=== PATIENT | female | born 1960 | race Caucasian/White ===

== ENCOUNTER 2016-12-10 21:46 | Inpatient (IN) | payer MEDICAID, OTHER ==
[~2016-12-10] VITALS: Ht 152.4 cm; Wt 76.0 kg
[2016-12-10 22:36] LABS: Basophils # (auto) 0.1 uL; Basophils % (auto) 0.7 % (0.0-2.0); CONDITION Y; Eosinophils # (auto) 0.3 uL; Eosinophils % (auto) 2.5 % (0.0-7.0); Hematocrit 43.7 % (36.0-46.0); Hemoglobin 14.7 g/dL (12.2-16.2); Lymphocytes # (auto) 3.5 uL; Mean Corpuscular Hemoglobin 27.6 pg (28.0-32.0); Mean Corpuscular Hgb Conc. 33.5 g/dL (32.0-36.0); Mean Corpuscular Volume 82.3 fL (80.0-100.0); Mean Platelet Volume 8.1 fL (6.9-10.8); Monocytes # (auto) 0.4 uL; Neutrophils # (auto) 5.8 uL; Neutrophils % (auto) 57.8 % (37.0-80.0); Platelet Count (auto) 378 10^3/uL (140-450); Red Cell Distribution Width 14.2 % (11.8-14.3)
[2016-12-10 22:57] LABS: Urine Bilirubin Negative (Negative); Urine Blood Negative /uL (Negative); Urine Ca Oxalate Crystal MANY (None Seen); Urine Color Yellow (Yellow); Urine Glucose Normal (Normal); Urine Hyaline Cast FEW /lpf (0 - 2); Urine Ketone TRACE (Negative); Urine Mucus FEW (None Seen); Urine Nitrite Negative (Negative); Urine RBC 6 /hpf (0 - 4); Urine Squamous Epithelial Cell FEW /hpf (<5); Urine pH 5.5 (5.0-8.0)
[2016-12-10 23:01] LABS: B-Type Natriuretic Peptide 136.13 pg/mL (0-100)
[2016-12-10 23:03] LABS: Temperature: 21.9 C (20.0-25.0)
[2016-12-10 23:07] LABS: Albumin 3.9 g/dL (3.4-5.0); BUN/Creatinine Ratio 14.3; Bilirubin, Total 0.2 mg/dL (0.2-1.0); Calcium 9.9 mg/dL (8.5-10.1); Potassium 4.2 mmol/L (3.5-5.1); Total Protein 8.1 g/dL (6.4-8.2)
[2016-12-11] VITALS (18 sets, daily range): BP systolic 92–120; BP diastolic 63–76
[2016-12-11] MEDS ORDERED: MORPHINE SULF INJ 2 MG/ML SYRINGE 1ML IV ONE (00:15)
[2016-12-11] MEDS ORDERED: NITROGLYCERIN 2% OINT 1GM PKG TD ONE (00:15)
[2016-12-11] MEDS ORDERED: ASPirin 81 mg TAB PO ONE (00:15)
[2016-12-11] MEDS ORDERED: ONDANSETRON HCL 4 MG/2 ML VIAL IV ONE (00:15)
[2016-12-11] MEDS ORDERED: cefTRIAXone 1GM/50ML D5W 50 ML IV ONE (02:45)
[2016-12-11] MEDS ORDERED: NITROGLYCERIN 0.4 MG SL TAB SL PRN (02:45)
[2016-12-11] MEDS ORDERED: ENOXAPARIN SOD 100 MG/1 ML SYRINGE SC SCH (02:45)
[2016-12-11] MEDS ORDERED: ONDANSETRON HCL 4 MG/2 ML VIAL IV PRN (02:45)
[2016-12-11] MEDS ORDERED: CLOPIDOGREL BISULFATE 75 MG TAB PO ONE (02:45)
[2016-12-11] MEDS ORDERED: DEXTROSE (50%) 50ML SYRG IV PRN (02:45)
[2016-12-11] MEDS ORDERED: CARVEDILOL 3.125 MG TAB PO ONE (02:45)
[2016-12-11] MEDS ORDERED: MORPHINE SULF INJ 2 MG/ML SYRINGE 1ML IV PRN ×2 (02:45)
[2016-12-11] MEDS ORDERED: cloNIDine HCL 0.1 MG TAB PO PRN (02:45)
[2016-12-11] MEDS ORDERED: HYDROcodone-ACET 5/325MG TAB PO PRN (02:45)
[2016-12-11] MEDS ORDERED: IOHEXOL 350 MG/ML 100ML IJ ONE (03:07)
[2016-12-11] MEDS: SODIUM CHLORIDE 0.9% 1,000 ML IV SCH ×2 (03:07→03:45)
[2016-12-11] MEDS: InsuLIN REG 1unit/0.01ml Soln (100units/ml) SC SCH ×4 (06:00→23:41)
[2016-12-11] MEDS ORDERED: cloNIDine HCL 0.1 MG TAB PO ONE (06:00)
[2016-12-11] MEDS: ACCU-CHEK COMFORT CURVE STRIP VI SCH ×4 (06:00→23:41)
[2016-12-11] MEDS ORDERED: CLOPIDOGREL BISULFATE 75 MG TAB PO SCH (10:00)
[2016-12-11] MEDS: ASPirin 81 mg TAB PO SCH (10:00)
[2016-12-11] MEDS: CARVEDILOL 3.125 MG TAB PO SCH ×2 (10:00→22:07)
[2016-12-11] MEDS: FAMOTIDINE 20 MG TAB PO SCH ×2 (10:00→22:08)
[2016-12-11] MEDS: amLODIPine BESYLATE 5 MG TAB PO SCH (10:00)
[2016-12-11] MEDS: ENOXAPARIN SOD 80 MG/0.8ML SYRINGE SC SCH ×2 (10:00→22:08)
[2016-12-11] MEDS: cefTRIAXone 1GM/50ML D5W 50 ML IV SCH (10:49)
[2016-12-11] MEDS ORDERED: LIDOCAINE 2%HCL (LOCAL ANESTH.) INJ 20ML MDV ONE (11:19)
[2016-12-11] MEDS ORDERED: IODIXANOL 320MG/ML 100ML BTL IV ONE (11:19)
[2016-12-11] MEDS ORDERED: ANGIOMAX 250 MG VIAL IV ONE (11:52)
[2016-12-11] MEDS ORDERED: fentaNYL CITRATE 100 MCG/2 ML VL ONE (11:53)
[2016-12-11] MEDS ORDERED: SODIUM CHL 0.9% 0 ML ONE (11:53)
[2016-12-11] MEDS ORDERED: MIDAZOLAM HCL 1MG/1ML-2 ML VIAL ONE (11:53)
[2016-12-11 11:55] LABS: INR 0.95 (0.9-1.15); Prothrombin Time 10.3 sec (9.37-12.3)
[2016-12-11] MEDS ORDERED: ceFAZolin 1GM 2 GM in D5W 5% 50 ML IV ONE (17:00)
[2016-12-11] MEDS ORDERED: VANCOMYCIN 1GM/250ML D5W 250 ML IV ONE (17:00)
[2016-12-11 17:59] LABS: Basophils # (auto) 0 uL; Basophils % (auto) 0.6 % (0.0-2.0); CONDITION Y; Eosinophils # (auto) 0.1 uL; Eosinophils % (auto) 1.8 % (0.0-7.0); Hematocrit 37.9 % (36.0-46.0); Hemoglobin 12.9 g/dL (12.2-16.2); Lymphocytes # (auto) 1.8 uL; Lymphocytes % (auto) 26.9 % (10.0-50.0); Mean Corpuscular Hemoglobin 28.2 pg (28.0-32.0); Mean Corpuscular Hgb Conc. 34.1 g/dL (32.0-36.0); Mean Corpuscular Volume 82.6 fL (80.0-100.0); Mean Platelet Volume 8.1 fL (6.9-10.8); Monocytes # (auto) 0.4 uL; Neutrophils # (auto) 4.4 uL; Neutrophils % (auto) 64.7 % (37.0-80.0); Platelet Count (auto) 292 10^3/uL (140-450); Red Cell Distribution Width 14.3 % (11.8-14.3); White Blood Cell 6.8 10^3/uL (4.4-10.8)
[2016-12-11] MEDS ORDERED: NITROGLYCERIN 50MG/250ML 250 ML IV ONE (18:02)
[2016-12-11 18:22] LABS: Albumin 3.4 g/dL (3.4-5.0); BUN/Creatinine Ratio 16.1; Bilirubin, Total 0.5 mg/dL (0.2-1.0); Calcium 8.9 mg/dL (8.5-10.1); Potassium 3.9 mmol/L (3.5-5.1); Total Protein 7.2 g/dL (6.4-8.2)
[2016-12-11] MEDS: NITROGLYCERIN 50MG/250ML 250 ML IV SCH (18:30)
[2016-12-11 19:05] LABS: Urine Bilirubin Negative (Negative); Urine Blood TRACE /uL (Negative); Urine Color Yellow (Yellow); Urine Glucose Normal (Normal); Urine Ketone Negative (Negative); Urine Mucus FEW (None Seen); Urine Nitrite Negative (Negative); Urine RBC 10 /hpf (0 - 4); Urine Squamous Epithelial Cell FEW /hpf (<5); Urine Urobilinogen Normal (Negative)
[2016-12-11 20:55] LABS: Allen Test Yes; Base Excess 0.3 mmol/L (-2.0-2.0); Blood 02Sat 92.6 % (96-100); Blood COHb 0.7 % (0.5-1.5); Blood MetHb 0.3 % (0.0-1.5); HCO3 25.3 mmol/L (22-26.0); HHb 7.3 % (0.0-5.0); MODE NASAL CANNULA; O2Hb 91.7 % (94.0-97.0); PCO2 42.4 mmHg (35.0-45.0); PCO2(T) 42.4 mmHg (35.0-45.0); PO2 68.1 mmHg (80.0-100.0); PO2(T) 68.1 mmHg (80.0-100.0); Sample Type Arterial; pH 7.394 (7.350-7.450)
[2016-12-11] MEDS: MUPIROCIN 2% OINT 22GM TOP SCH (21:00)
[2016-12-11] MEDS ORDERED: ASCORBIC ACID 500 MG TAB PO ONE (22:00)
[2016-12-11] MEDS: ACETAMINOPHEN 325 MG TAB PO PRN (22:25)
[2016-12-12] VITALS (51 sets, daily range): BP systolic 96–165; BP diastolic 56–94
[2016-12-12] MEDS ORDERED: CHLORHEXIDINE 4% TOPICAL soln 118ML TOP ONE (02:00)
[2016-12-12 04:21] LABS: Basophils # (auto) 0 uL; Basophils % (auto) 0.5 % (0.0-2.0); CONDITION Y; Eosinophils # (auto) 0.1 uL; Eosinophils % (auto) 1.8 % (0.0-7.0); Hematocrit 37.6 % (36.0-46.0); Hemoglobin 12.6 g/dL (12.2-16.2); Lymphocytes # (auto) 2.7 uL; Lymphocytes % (auto) 39.3 % (10.0-50.0); Mean Corpuscular Hemoglobin 27.8 pg (28.0-32.0); Mean Corpuscular Hgb Conc. 33.4 g/dL (32.0-36.0); Mean Corpuscular Volume 83.3 fL (80.0-100.0); Mean Platelet Volume 8.3 fL (6.9-10.8); Monocytes # (auto) 0.4 uL; Neutrophils # (auto) 3.6 uL; Neutrophils % (auto) 52.4 % (37.0-80.0); Platelet Count (auto) 250 10^3/uL (140-450); Red Cell Distribution Width 14.1 % (11.8-14.3); White Blood Cell 6.8 10^3/uL (4.4-10.8)
[2016-12-12 05:07] LABS: Albumin 3.2 g/dL (3.4-5.0); BUN/Creatinine Ratio 14.5; Bilirubin, Total 0.4 mg/dL (0.2-1.0); Calcium 8.7 mg/dL (8.5-10.1); Potassium 3.7 mmol/L (3.5-5.1); Total Protein 7.1 g/dL (6.4-8.2)
[2016-12-12] MEDS: InsuLIN REG 1unit/0.01ml Soln (100units/ml) SC SCH ×4 (06:47→23:44)
[2016-12-12] MEDS: ACCU-CHEK COMFORT CURVE STRIP VI SCH ×4 (06:47→23:44)
[2016-12-12] MEDS: MUPIROCIN 2% OINT 22GM TOP SCH ×3 (07:00→21:11)
[2016-12-12] MEDS ORDERED: ACCU-CHEK COMFORT CURVE STRIP VI ONE (08:00)
[2016-12-12] MEDS ORDERED: VANCOMYCIN 1GM/250ML D5W 250 ML IV ONE (08:00)
[2016-12-12] MEDS ORDERED: ceFAZolin 1GM/50ML D5W 50 ML IV ONE (08:00)
[2016-12-12] MEDS: cefTRIAXone 1GM/50ML D5W 50 ML IV SCH (08:54)
[2016-12-12] MEDS: SODIUM CHLORIDE 0.9% 1,000 ML IV SCH ×2 (08:56→21:35)
[2016-12-12] MEDS: ENOXAPARIN SOD 80 MG/0.8ML SYRINGE SC SCH (09:52)
[2016-12-12] MEDS: amLODIPine BESYLATE 5 MG TAB PO SCH (09:52)
[2016-12-12] MEDS: FAMOTIDINE 20 MG TAB PO SCH ×2 (09:53→21:43)
[2016-12-12] MEDS: CARVEDILOL 3.125 MG TAB PO SCH ×2 (09:53→21:43)
[2016-12-12] MEDS: ASPirin 81 mg TAB PO SCH (09:54)
[2016-12-12 11:43] LABS: Allen Test Yes; Base Excess -2.1 mmol/L (-2.0-2.0); Blood 02Sat 91.8 % (96-100); Blood COHb 0.9 % (0.5-1.5); Blood MetHb 0.2 % (0.0-1.5); HCO3 21.8 mmol/L (22-26.0); HHb 8.1 % (0.0-5.0); MODE ROOM AIR; O2Hb 90.8 % (94.0-97.0); PCO2 34.7 mmHg (35.0-45.0); PCO2(T) 34.7 mmHg (35.0-45.0); PO2 64.4 mmHg (80.0-100.0); PO2(T) 64.4 mmHg (80.0-100.0); Sample Type Arterial; pH 7.416 (7.350-7.450)
[2016-12-12] MEDS: IPRATROPIUM BROM 0.5 MG/2.5ML INH SOL NEB SCH ×3 (13:16→19:22)
[2016-12-12] MEDS ORDERED: CHLORHEXIDINE 0.12% ORAL rinse 473ML MT ONE (17:00)
[2016-12-12] MEDS: NITROGLYCERIN 50MG/250ML 250 ML IV SCH (17:05)
[2016-12-12] MEDS ORDERED: METOPROLOL TARTRATE 1MG/1ML-5ML VIAL IV ONE ×2 (18:07→18:15)
[2016-12-12] MEDS ORDERED: METOPROLOL TARTRATE 1MG/1ML-5ML VIAL IV PRN (18:15)
[2016-12-12] MEDS ORDERED: NITROGLYCERIN 50MG/250ML 250 ML IV SCH (19:00)
[2016-12-12] MEDS ORDERED: HEPARIN SODIUM (PORCINE) 5000 UNITS/ML 1ML VIAL IV ONE (19:00)
[2016-12-12] MEDS ORDERED: HEPARIN DRIP/D5W 100UNITS/ML 250 ML IV SCH (19:00)
[2016-12-12] MEDS: ACETAMINOPHEN 325 MG TAB PO PRN (21:50)
[2016-12-12] MEDS ORDERED: ASCORBIC ACID 500 MG TAB PO ONE (22:00)
[2016-12-12] MEDS ORDERED: ATORVASTATIN 20 MG TAB PO SCH (22:00)
[2016-12-13] VITALS (68 sets, daily range): BP systolic 25–148; BP diastolic 11–91
[2016-12-13] MEDS: IPRATROPIUM BROM 0.5 MG/2.5ML INH SOL NEB SCH ×3 (00:57→12:59)
[2016-12-13] MEDS ORDERED: CHLORHEXIDINE 4% TOPICAL soln 118ML TOP ONE (02:00)
[2016-12-13 03:45] LABS: Basophils # (auto) 0 uL; Basophils % (auto) 0.6 % (0.0-2.0); CONDITION Y; Eosinophils # (auto) 0.2 uL; Eosinophils % (auto) 2.9 % (0.0-7.0); Hematocrit 33.7 % (36.0-46.0); Hemoglobin 11.3 g/dL (12.2-16.2); Lymphocytes # (auto) 2.7 uL; Lymphocytes % (auto) 44.7 % (10.0-50.0); Mean Corpuscular Hemoglobin 27.9 pg (28.0-32.0); Mean Corpuscular Hgb Conc. 33.5 g/dL (32.0-36.0); Mean Corpuscular Volume 83.2 fL (80.0-100.0); Mean Platelet Volume 8.1 fL (6.9-10.8); Monocytes # (auto) 0.3 uL; Monocytes % (auto) 5.7 % (0.0-12.0); Neutrophils # (auto) 2.8 uL; Neutrophils % (auto) 46.1 % (37.0-80.0); Platelet Count (auto) 229 10^3/uL (140-450); Red Cell Distribution Width 14.1 % (11.8-14.3); White Blood Cell 6.1 10^3/uL (4.4-10.8)
[2016-12-13 03:50] LABS: INR 0.94 (0.9-1.15); Partial Thromboplastin Time 31.3 sec (22.64-33.71); Prothrombin Time 10.2 sec (9.37-12.3)
[2016-12-13 04:15] LABS: BUN/Creatinine Ratio 14.8; Calcium 8.5 mg/dL (8.5-10.1); Magnesium 1.7 mg/dL (1.6-2.6); Potassium 3.8 mmol/L (3.5-5.1)
[2016-12-13] MEDS: MUPIROCIN 2% OINT 22GM TOP SCH ×3 (04:31→10:45)
[2016-12-13] MEDS: InsuLIN REG 1unit/0.01ml Soln (100units/ml) SC SCH ×2 (06:01→11:06)
[2016-12-13] MEDS: ACCU-CHEK COMFORT CURVE STRIP VI SCH ×7 (06:01→22:52)
[2016-12-13] MEDS ORDERED: CHLORHEXIDINE 0.12% ORAL rinse 473ML MT ONE ×2 (08:00→09:39)
[2016-12-13] MEDS ORDERED: VANCOMYCIN 1GM/250ML D5W 250 ML IV ONE (08:00)
[2016-12-13] MEDS ORDERED: ceFAZolin 1GM/50ML D5W 50 ML IV ONE (08:00)
[2016-12-13] MEDS ORDERED: AMINOCAPROIC ACID 10 GM in SODIUM CHL 0.9% 100 ML IV ONE (09:00)
[2016-12-13] MEDS ORDERED: EPINEPHrine HCL 4 MG in D5W 5% 250 ML IV ONE (09:00)
[2016-12-13] MEDS ORDERED: PHENYLEPHRINE INJ 20 MG in SODIUM CHL 0.9% 250 ML IV ONE (09:00)
[2016-12-13] MEDS ORDERED: HEPARIN 30000 UNITS in SODIUM CHLORIDE 0.9% 1000 ML IV ONE (09:00)
[2016-12-13] MEDS ORDERED: InsuLIN R (HUMAN) 100 UNITS in SODIUM CHL 0.9% 99 ML IV ONE (09:00)
[2016-12-13] MEDS ORDERED: VASOPRESSIN 50 UNITS in SODIUM CHL 0.9% 247.5 ML IV ONE (09:00)
[2016-12-13] MEDS ORDERED: AMINOCAPROIC ACID 5 GM in SODIUM CHL 0.9% 250 ML IV ONE (09:00)
[2016-12-13] MEDS ORDERED: METF-372 PO (09:36)
[2016-12-13] MEDS ORDERED: SITA100T7 PO (09:36)
[2016-12-13] MEDS ORDERED: AML5T PO (09:36)
[2016-12-13] MEDS: FAMOTIDINE 20 MG TAB PO SCH (09:36)
[2016-12-13] MEDS ORDERED: CAR3125T PO (09:36)
[2016-12-13] MEDS: CARVEDILOL 3.125 MG TAB PO SCH (09:37)
[2016-12-13] MEDS: cefTRIAXone 1GM/50ML D5W 50 ML IV SCH (09:45)
[2016-12-13] MEDS ORDERED: CARV6.2551 PO (09:51)
[2016-12-13] MEDS ORDERED: ASPI-231 PO (09:56)
[2016-12-13] MEDS ORDERED: ASPirin 81 mg TAB PO SCH (10:00)
[2016-12-13] MEDS ORDERED: ARIP2TAB PO (10:09)
[2016-12-13] MEDS ORDERED: GABA-497 PO (10:14)
[2016-12-13] MEDS ORDERED: OMEP20CA74 PO (10:14)
[2016-12-13] MEDS ORDERED: FERR325T PO (10:14)
[2016-12-13] MEDS ORDERED: BUPR75TA9 PO (10:14)
[2016-12-13] MEDS ORDERED: GLIP-115 PO (10:14)
[2016-12-13] MEDS ORDERED: ALBUMIN 25% 400 ML IV ONE (10:43)
[2016-12-13] MEDS ORDERED: HEPARIN 1,000 UNITS/ml 1ML VIAL ONE (11:16)
[2016-12-13] MEDS ORDERED: PAPAVERINE HCL 60 MG/2 ML 2ML VIAL ONE (11:16)
[2016-12-13] MEDS ORDERED: NEOMYCIN-BACITRACIN-POLYM 15GM TOP OINT TOP ONE (11:16)
[2016-12-13] MEDS ORDERED: ceFAZolin 1GM VL ONE (11:16)
[2016-12-13] MEDS ORDERED: AMINOCAPROIC ACID 5 GM/20 ML VL IV ONE (11:25)
[2016-12-13] MEDS ORDERED: FUROSEMIDE 20 MG/2 ML VIAL IV ONE (11:25)
[2016-12-13] MEDS ORDERED: LIDOCAINE HCL 100 MG/5ML (2%) SYRG INJ IV ONE (11:25)
[2016-12-13] MEDS ORDERED: POTASSIUM CHL 2MEQ/ML 20ML IV ONE (11:25)
[2016-12-13] MEDS ORDERED: CALCIUM CHLOR(10%) 100MG/ML 10ML SYRINGE IV ONE ×2 (11:25→12:28)
[2016-12-13] MEDS ORDERED: SODIUM BICARBONATE 8.4% INJ 50ML SYRINGE IV ONE (11:25)
[2016-12-13] MEDS ORDERED: MAGNESIUM SULF 50% 40 MEQ/10 ML VL IV ONE (11:25)
[2016-12-13] MEDS ORDERED: MANNITOL 20% SOLN 100 gm/500ml BAG IV ONE (11:25)
[2016-12-13] MEDS ORDERED: PHENYLEPHRINE HCL 10 MG/ML VL IV ONE (11:25)
[2016-12-13] MEDS ORDERED: ADENOSINE 6 MG/2 ML INJ IV ONE (11:25)
[2016-12-13] MEDS ORDERED: LIDOCAINE 2%HCL (LOCAL ANESTH.) INJ 20ML MDV ONE (12:14)
[2016-12-13] MEDS ORDERED: MIDAZOLAM HCL 1MG/1ML-2 ML VIAL ONE ×3 (12:24→12:39)
[2016-12-13] MEDS ORDERED: PROPOFOL 100 ML IV ONE (12:29)
[2016-12-13] MEDS ORDERED: ROCURONIUM 10MG/ML 10ML VIAL IV ONE (12:29)
[2016-12-13] MEDS ORDERED: fentaNYL CITRATE 100 MCG/2 ML VL ONE (12:39)
[2016-12-13] MEDS ORDERED: fentaNYL CITRATE 10 ML ONE (13:24)
[2016-12-13] MEDS ORDERED: INSULIN DRIP 100 UNIT/100ML 100 ML IV SCH (18:41)
[2016-12-13 18:43] LABS: Base Excess -1.3 mmol/L (-2.0-2.0); Blood 02Sat 98.5 % (96-100); Blood COHb 0.3 % (0.5-1.5); Blood MetHb 0.7 % (0.0-1.5); HCO3 23.8 mmol/L (22-26.0); HHb 1.5 % (0.0-5.0); MODE VENT - A/C; O2Hb 97.5 % (94.0-97.0); PCO2 41.5 mmHg (35.0-45.0); PO2 158.3 mmHg (80.0-100.0); PO2(T) 147.1 mmHg (80.0-100.0); Sample Type Arterial; pH 7.377 (7.350-7.450)
[2016-12-13 18:45] LABS: Base Excess -1.5 mmol/L (-2.0-2.0); Blood 02Sat 99.2 % (96-100); Blood COHb 0.3 % (0.5-1.5); Blood MetHb 0.6 % (0.0-1.5); HHb 0.8 % (0.0-5.0); MODE VENT - A/C; O2Hb 98.3 % (94.0-97.0); PCO2(T) 45.8 mmHg (35.0-45.0); PO2 463.6 mmHg (80.0-100.0); PO2(T) 451.1 mmHg (80.0-100.0); Sample Type Arterial; pH 7.317 (7.350-7.450)
[2016-12-13] MEDS ORDERED: SODIUM BICARBONATE 8.4% INJ 50ML SYRINGE IV PRN (18:45)
[2016-12-13] MEDS ORDERED: AMIODARONE HCL 150 MG in D5W 5% 100 ML IV ONE (18:45)
[2016-12-13] MEDS ORDERED: DEXTROSE (50%) 50ML SYRG IV PRN (18:45)
[2016-12-13 18:46] LABS: Base Excess 0.5 mmol/L (-2.0-2.0); Blood 02Sat 97.9 % (96-100); Blood COHb 0.2 % (0.5-1.5); Blood MetHb 0.9 % (0.0-1.5); HCO3 26.3 mmol/L (22-26.0); HHb 2.1 % (0.0-5.0); MODE OXYGENATOR/CPB; O2Hb 96.8 % (94.0-97.0); PCO2 48.7 mmHg (35.0-45.0); PCO2(T) 48.7 mmHg (35.0-45.0); PO2 155.1 mmHg (80.0-100.0); PO2(T) 155.1 mmHg (80.0-100.0); Sample Type Arterial; pH 7.351 (7.350-7.450)
[2016-12-13 18:47] LABS: Base Excess -2.1 mmol/L (-2.0-2.0); Blood 02Sat 98.7 % (96-100); Blood COHb 0.3 % (0.5-1.5); Blood MetHb 0.9 % (0.0-1.5); HCO3 23.3 mmol/L (22-26.0); HHb 1.3 % (0.0-5.0); MODE OXYGENATOR/CPB; O2Hb 97.5 % (94.0-97.0); PCO2 42.6 mmHg (35.0-45.0); PCO2(T) 37.4 mmHg (35.0-45.0); PO2 361.5 mmHg (80.0-100.0); Sample Type Arterial; pH 7.356 (7.350-7.450)
[2016-12-13 18:47] LABS: Base Excess 0.1 mmol/L (-2.0-2.0); Blood 02Sat 98.3 % (96-100); Blood COHb 0.3 % (0.5-1.5); HCO3 25.4 mmol/L (22-26.0); HHb 1.7 % (0.0-5.0); MODE OXYGENATOR/CPB; PCO2 44.5 mmHg (35.0-45.0); PO2 208.1 mmHg (80.0-100.0); PO2(T) 193.5 mmHg (80.0-100.0); Sample Type Arterial; pH 7.375 (7.350-7.450)
[2016-12-13 18:48] LABS: Base Excess -1.5 mmol/L (-2.0-2.0); Blood 02Sat 98.5 % (96-100); Blood COHb 0.3 % (0.5-1.5); Blood MetHb 1.3 % (0.0-1.5); HCO3 23.4 mmol/L (22-26.0); HHb 1.5 % (0.0-5.0); MODE OXYGENATOR/CPB; O2Hb 96.9 % (94.0-97.0); PCO2 39.7 mmHg (35.0-45.0); PCO2(T) 36.4 mmHg (35.0-45.0); PO2 305.4 mmHg (80.0-100.0); PO2(T) 295.8 mmHg (80.0-100.0); Sample Type Arterial; pH 7.388 (7.350-7.450)
[2016-12-13 18:49] LABS: Base Excess -0.6 mmol/L (-2.0-2.0); Blood 02Sat 97.1 % (96-100); Blood COHb 0.3 % (0.5-1.5); Blood MetHb 1.1 % (0.0-1.5); HCO3 23.6 mmol/L (22-26.0); HHb 2.9 % (0.0-5.0); MODE VENT - A/C; O2Hb 95.7 % (94.0-97.0); PCO2 36.7 mmHg (35.0-45.0); PCO2(T) 36.7 mmHg (35.0-45.0); PO2 113.6 mmHg (80.0-100.0); PO2(T) 113.6 mmHg (80.0-100.0); Sample Type Arterial; pH 7.426 (7.350-7.450)
[2016-12-13] MEDS ORDERED: AMIODARONE HCL 900 MG in DEXTROSE 500 ML IV SCH (19:00)
[2016-12-13 19:28] LABS: Base Excess -2.7 mmol/L (-2.0-2.0); Blood 02Sat 89.6 % (96-100); Blood COHb 0.1 % (0.5-1.5); Blood MetHb 0.2 % (0.0-1.5); HHb 10.4 % (0.0-5.0); MODE VENT - A/C; O2Hb 89.3 % (94.0-97.0); PCO2 37.6 mmHg (35.0-45.0); PCO2(T) 37.6 mmHg (35.0-45.0); PO2 59.5 mmHg (80.0-100.0); PO2(T) 59.5 mmHg (80.0-100.0); Sample Type Arterial; pH 7.385 (7.350-7.450)
[2016-12-13 19:46] LABS: Basophils # (auto) 0 uL; Basophils % (auto) 0.5 % (0.0-2.0); Eosinophils # (auto) 0.1 uL; Eosinophils % (auto) 1.1 % (0.0-7.0); Hemoglobin 9.7 g/dL (12.2-16.2); Lymphocytes # (auto) 1.8 uL; Lymphocytes % (auto) 23.6 % (10.0-50.0); Mean Corpuscular Hemoglobin 28.9 pg (28.0-32.0); Mean Corpuscular Hgb Conc. 34.7 g/dL (32.0-36.0); Mean Corpuscular Volume 83.2 fL (80.0-100.0); Mean Platelet Volume 7.8 fL (6.9-10.8); Monocytes # (auto) 0.5 uL; Monocytes % (auto) 6.5 % (0.0-12.0); Neutrophils # (auto) 5.2 uL; Neutrophils % (auto) 68.3 % (37.0-80.0); Platelet Count (auto) 118 10^3/uL (140-450); Red Cell Distribution Width 14.2 % (11.8-14.3); White Blood Cell 7.6 10^3/uL (4.4-10.8)
[2016-12-13 19:52] LABS: Blood 02Sat 63.7 % (96-100); MODE VENT - A/C; Sample Type Venous; Venous Blood COHb 0.9 % (0.5-1.5); Venous Blood MetHb 0.3 % (0.0-1.5); Venous Blood O2Hb 62.9 % (94.0-97.0); Venous Blood PO2 < 35.0 mmHg (38.0-42.0); Venous Deoxyhemoglobin 35.9 % (0.0-5.0)
[2016-12-13] MEDS: PROPOFOL 100 ML IV SCH (20:00)
[2016-12-13 20:05] LABS: INR 0.97 (0.9-1.15); Partial Thromboplastin Time 23.4 sec (22.64-33.71); Prothrombin Time 10.6 sec (9.37-12.3)
[2016-12-13 20:10] LABS: Albumin 3.4 g/dL (3.4-5.0); BUN/Creatinine Ratio 10.9; Calcium 8.5 mg/dL (8.5-10.1); Magnesium 3.5 mg/dL (1.6-2.6); Potassium 4.1 mmol/L (3.5-5.1)
[2016-12-13 20:12] LABS: Bilirubin, Total 0.8 mg/dL (0.2-1.0); Phosphorus 2.4 mg/dL (2.5-4.90); Total Protein 5.7 g/dL (6.4-8.2)
[2016-12-13] MEDS ORDERED: VANCOMYCIN PER PHARMACY 0 MG IV STA (20:43)
[2016-12-13] MEDS ORDERED: MAGNESIUM SULFATE 1GM/100ML 100 ML IV PRN (20:45)
[2016-12-13] MEDS ORDERED: MORPHINE SULF INJ 2 MG/ML SYRINGE 1ML IV PRN ×2 (20:45→21:15)
[2016-12-13] MEDS ORDERED: CALCIUM GLUC 4.65meq/50ml D5AE 50 ML IV PRN (20:45)
[2016-12-13] MEDS ORDERED: MORPHINE SULFATE 4 MG/ML SYRG IV PRN (20:45)
[2016-12-13] MEDS: ceFAZolin 1GM/50ML D5W 50 ML IV SCH (21:42)
[2016-12-13] MEDS: CHLORHEXIDINE 0.12% ORAL rinse 473ML MT SCH (21:43)
[2016-12-13] MEDS: NOREPINEPHRINE BITARTRATE 250 ML IV SCH (21:43)
[2016-12-13] MEDS: SODIUM CHLORIDE 0.9% 500 ML IV SCH (21:43)
[2016-12-13] MEDS: NICARDIPINE 25MG/250ML BAG KIT 250 ML IV SCH ×2 (21:44→23:41)
[2016-12-13] MEDS: MILRINONE 20MG/100ML 100 ML IV SCH (21:46)
[2016-12-13] MEDS: SODIUM CHLORIDE 0.9% 1,000 ML IV SCH (21:47)
[2016-12-13] MEDS ORDERED: fentaNYL Drip 2500mCg/250mlNS 250 ML IV ONE (22:05)
[2016-12-13] MEDS: fentaNYL Drip 2500mCg/250mlNS 250 ML IV SCH (22:08)
[2016-12-13] MEDS: NITROGLYCERIN 50MG/250ML 250 ML IV SCH (22:13)
[2016-12-13] MEDS: PHENYLEPHRINE IV 250 ML IV SCH (22:14)
[2016-12-13] MEDS: ALBUMIN 5% 250 ML IV PRN (22:58)
[2016-12-14] VITALS (111 sets, daily range): BP systolic 24–203; BP diastolic 8–198
[2016-12-14] MEDS: VANCOMYCIN 1GM/250ML D5W 250 ML IV SCH ×2 (00:17→11:32)
[2016-12-14] MEDS: ACCU-CHEK COMFORT CURVE STRIP VI SCH ×18 (00:18→17:12)
[2016-12-14 00:31] LABS: BUN/Creatinine Ratio 12.5; Calcium 8.7 mg/dL (8.5-10.1); Magnesium 2.9 mg/dL (1.6-2.6); Phosphorus 2.4 mg/dL (2.5-4.90); Potassium 3.4 mmol/L (3.5-5.1)
[2016-12-14] MEDS: AMIODARONE HCL 900 MG in DEXTROSE 500 ML IV SCH (01:00)
[2016-12-14] MEDS: POTASSIUM CHL 20MEQ/100ML 100 ML IV PRN ×3 (01:30→03:16)
[2016-12-14] MEDS: PROPOFOL 100 ML IV SCH ×2 (02:00→07:17)
[2016-12-14] MEDS: NITROGLYCERIN 50MG/250ML 250 ML IV SCH (02:20)
[2016-12-14] MEDS: SODIUM CHLORIDE 0.9% 1,000 ML IV SCH ×3 (02:41→19:01)
[2016-12-14] MEDS ORDERED: IBUPROFEN 400 MG TAB PO PRN (02:45)
[2016-12-14] MEDS ORDERED: IBUPROFEN 800 MG TAB PO ONE (02:50)
[2016-12-14] MEDS: ALBUMIN 5% 250 ML IV PRN ×2 (04:06→08:08)
[2016-12-14 04:35] LABS: Base Excess -0.1 mmol/L (-2.0-2.0); Blood 02Sat 95.9 % (96-100); Blood COHb 0.6 % (0.5-1.5); Blood MetHb 0.3 % (0.0-1.5); HCO3 24.9 mmol/L (22-26.0); HHb 4.1 % (0.0-5.0); MODE VENT - A/C; PCO2 41.9 mmHg (35.0-45.0); PCO2(T) 43.8 mmHg (35.0-45.0); PO2 91.7 mmHg (80.0-100.0); PO2(T) 97.6 mmHg (80.0-100.0); Sample Type Arterial; pH 7.391 (7.350-7.450)
[2016-12-14] MEDS: NICARDIPINE 25MG/250ML BAG KIT 250 ML IV SCH ×4 (04:41→19:30)
[2016-12-14 04:42] LABS: Basophils # (auto) 0.1 uL; Basophils % (auto) 0.6 % (0.0-2.0); Eosinophils # (auto) 0 uL; Eosinophils % (auto) 0.2 % (0.0-7.0); Hematocrit 30.4 % (36.0-46.0); Hemoglobin 10.3 g/dL (12.2-16.2); Lymphocytes # (auto) 1.6 uL; Lymphocytes % (auto) 16.5 % (10.0-50.0); Mean Corpuscular Hemoglobin 28.3 pg (28.0-32.0); Mean Corpuscular Hgb Conc. 33.7 g/dL (32.0-36.0); Mean Platelet Volume 8.2 fL (6.9-10.8); Monocytes # (auto) 0.6 uL; Monocytes % (auto) 6.4 % (0.0-12.0); Neutrophils # (auto) 7.6 uL; Neutrophils % (auto) 76.3 % (37.0-80.0); Platelet Count (auto) 180 10^3/uL (140-450); Red Cell Distribution Width 14.5 % (11.8-14.3); White Blood Cell 9.9 10^3/uL (4.4-10.8)
[2016-12-14 05:03] LABS: BUN/Creatinine Ratio 10.8; Calcium 8.4 mg/dL (8.5-10.1); Magnesium 2.7 mg/dL (1.6-2.6); Phosphorus 3.3 mg/dL (2.5-4.90)
[2016-12-14 05:08] LABS: Potassium 5.6 mmol/L (3.5-5.1)
[2016-12-14] MEDS: ceFAZolin 1GM/50ML D5W 50 ML IV SCH ×3 (05:53→22:06)
[2016-12-14] MEDS: MILRINONE 20MG/100ML 100 ML IV SCH ×2 (06:00→16:20)
[2016-12-14] MEDS ORDERED: SODIUM CHLORIDE 0.9% 300 ML IV ONE (06:15)
[2016-12-14] MEDS: CHLORHEXIDINE 0.12% ORAL rinse 473ML MT SCH ×2 (10:00→22:06)
[2016-12-14] MEDS: PANTOPRAZOLE 40 MG/10 ML VIAL IV SCH (10:48)
[2016-12-14 13:22] LABS: Basophils # (auto) 0.1 uL; Basophils % (auto) 0.8 % (0.0-2.0); Eosinophils # (auto) 0.1 uL; Eosinophils % (auto) 1.4 % (0.0-7.0); Hematocrit 28.8 % (36.0-46.0); Hemoglobin 9.8 g/dL (12.2-16.2); Lymphocytes # (auto) 1.6 uL; Lymphocytes % (auto) 18.6 % (10.0-50.0); Mean Corpuscular Hemoglobin 28.4 pg (28.0-32.0); Mean Corpuscular Hgb Conc. 33.9 g/dL (32.0-36.0); Mean Corpuscular Volume 83.8 fL (80.0-100.0); Mean Platelet Volume 8.1 fL (6.9-10.8); Monocytes # (auto) 0.5 uL; Monocytes % (auto) 5.6 % (0.0-12.0); Neutrophils # (auto) 6.3 uL; Neutrophils % (auto) 73.6 % (37.0-80.0); Platelet Count (auto) 159 10^3/uL (140-450); Red Cell Distribution Width 14.6 % (11.8-14.3); White Blood Cell 8.6 10^3/uL (4.4-10.8)
[2016-12-14] MEDS: MORPHINE SULF INJ 2 MG/ML SYRINGE 1ML IV PRN ×2 (13:22→23:51)
[2016-12-14 13:38] LABS: BUN/Creatinine Ratio 14.5; Calcium 8.5 mg/dL (8.5-10.1); Magnesium 2.6 mg/dL (1.6-2.6); Phosphorus 3.4 mg/dL (2.5-4.90)
[2016-12-14 15:23] LABS: Blood 02Sat 89.3 % (96-100); Blood COHb 0.6 % (0.5-1.5); Blood MetHb 0.1 % (0.0-1.5); HCO3 18.6 mmol/L (22-26.0); HHb 10.6 % (0.0-5.0); MODE VENT - SIMV; O2Hb 88.7 % (94.0-97.0); PCO2 29.7 mmHg (35.0-45.0); PCO2(T) 29.7 mmHg (35.0-45.0); PO2 61.5 mmHg (80.0-100.0); PO2(T) 61.5 mmHg (80.0-100.0); Pressure Support 8; Sample Type Arterial; pH 7.414 (7.350-7.450)
[2016-12-14 16:11] LABS: Base Excess -2.8 mmol/L (-2.0-2.0); Blood 02Sat 91.1 % (96-100); Blood COHb 0.2 % (0.5-1.5); Blood MetHb 0.5 % (0.0-1.5); HHb 8.8 % (0.0-5.0); MODE VENT - CPAP; O2Hb 90.5 % (94.0-97.0); PCO2 28.4 mmHg (35.0-45.0); PCO2(T) 29.3 mmHg (35.0-45.0); PO2 61.9 mmHg (80.0-100.0); Pressure Support 10; Sample Type Arterial; pH 7.466 (7.350-7.450)
[2016-12-14] MEDS ORDERED: FUROSEMIDE 20 MG/2 ML VIAL ONE (16:56)
[2016-12-14] MEDS ORDERED: FUROSEMIDE 20 MG/2 ML VIAL IV ONE (17:02)
[2016-12-14 18:40] LABS: Base Excess -2.8 mmol/L (-2.0-2.0); Blood 02Sat 91.5 % (96-100); Blood COHb 0.5 % (0.5-1.5); Blood MetHb 0.1 % (0.0-1.5); HCO3 20.3 mmol/L (22-26.0); HHb 8.4 % (0.0-5.0); MODE MASK - BIPAP; PCO2 29.6 mmHg (35.0-45.0); PCO2(T) 31.6 mmHg (35.0-45.0); PIP 15; PO2 62.1 mmHg (80.0-100.0); PO2(T) 68.9 mmHg (80.0-100.0); Sample Type Arterial; Spont Vt 478; pH 7.454 (7.350-7.450)
[2016-12-14] MEDS: PHENYLEPHRINE IV 250 ML IV SCH (18:41)
[2016-12-14] MEDS: NOREPINEPHRINE BITARTRATE 250 ML IV SCH (18:41)
[2016-12-14] MEDS: SODIUM CHLORIDE 0.9% 500 ML IV SCH (19:01)
[2016-12-14] MEDS ORDERED: KETOROLAC TROMETH 30 MG/ML 1ML VIAL ONE (19:42)
[2016-12-14] MEDS: INSULIN DRIP 100 UNIT/100ML 100 ML IV SCH (20:00)
[2016-12-14] MEDS ORDERED: ACCU-CHEK COMFORT CURVE STRIP VI SCH (20:00)
[2016-12-14] MEDS ORDERED: KETOROLAC TROMETH 30 MG/ML 1ML VIAL IV ONE (20:30)
[2016-12-14] MEDS: fentaNYL Drip 2500mCg/250mlNS 250 ML IV SCH (22:08)
[2016-12-15] VITALS (86 sets, daily range): BP systolic -14–159; BP diastolic -15–118
[2016-12-15] MEDS: VANCOMYCIN 1GM/250ML D5W 250 ML IV SCH ×2 (00:08→13:00)
[2016-12-15 00:27] LABS: Potassium 3.9 mmol/L (3.5-5.1)
[2016-12-15] MEDS: NICARDIPINE 25MG/250ML BAG KIT 250 ML IV SCH ×5 (00:41→20:41)
[2016-12-15] MEDS: AMIODARONE HCL 900 MG in DEXTROSE 500 ML IV SCH (01:00)
[2016-12-15] MEDS: POTASSIUM CHL 20MEQ/100ML 100 ML IV PRN ×2 (01:18→04:23)
[2016-12-15] MEDS ORDERED: FUROSEMIDE 20 MG/2 ML VIAL IV ONE ×4 (02:15→20:15)
[2016-12-15] MEDS: KETOROLAC TROMETH 30 MG/ML 1ML VIAL IV PRN ×2 (02:31→17:45)
[2016-12-15] MEDS: SODIUM CHLORIDE 0.9% 1,000 ML IV SCH (02:41)
[2016-12-15 03:33] LABS: Basophils # (auto) 0 uL; Basophils % (auto) 0.6 % (0.0-2.0); Eosinophils # (auto) 0.2 uL; Eosinophils % (auto) 2.3 % (0.0-7.0); Hematocrit 27.9 % (36.0-46.0); Hemoglobin 9.4 g/dL (12.2-16.2); Lymphocytes # (auto) 1.5 uL; Lymphocytes % (auto) 21.2 % (10.0-50.0); Mean Corpuscular Hemoglobin 28.4 pg (28.0-32.0); Mean Corpuscular Hgb Conc. 33.7 g/dL (32.0-36.0); Mean Corpuscular Volume 84.4 fL (80.0-100.0); Mean Platelet Volume 8.2 fL (6.9-10.8); Monocytes # (auto) 0.6 uL; Monocytes % (auto) 8.6 % (0.0-12.0); Neutrophils # (auto) 4.7 uL; Neutrophils % (auto) 67.3 % (37.0-80.0); Nucleated Red Blood Cells % 0.1 %; Platelet Count (auto) 125 10^3/uL (140-450); Red Cell Distribution Width 15.2 % (11.8-14.3)
[2016-12-15 04:07] LABS: Albumin 3.4 g/dL (3.4-5.0); BUN/Creatinine Ratio 13.4; Bilirubin, Total 0.9 mg/dL (0.2-1.0); Potassium 3.8 mmol/L (3.5-5.1); Total Protein 6.1 g/dL (6.4-8.2)
[2016-12-15] MEDS: MILRINONE 20MG/100ML 100 ML IV SCH (04:38)
[2016-12-15] MEDS ORDERED: HYDROcodone-ACET 5/325MG TAB PO PRN ×2 (05:45→15:30)
[2016-12-15] MEDS: ceFAZolin 1GM/50ML D5W 50 ML IV SCH ×3 (06:00→14:32)
[2016-12-15] MEDS ORDERED: IPRATROPIUM BROM 0.5 MG/2.5ML INH SOL ONE (06:06)
[2016-12-15 06:09] LABS: Allen Test No; Base Excess -1.1 mmol/L (-2.0-2.0); Blood 02Sat 90.7 % (96-100); Blood MetHb 0.2 % (0.0-1.5); HHb 9.3 % (0.0-5.0); MODE MASK - BIPAP; O2Hb 90.5 % (94.0-97.0); PO2 60.5 mmHg (80.0-100.0); PO2(T) 60.5 mmHg (80.0-100.0); Sample Type Arterial; pH 7.468 (7.350-7.450)
[2016-12-15] MEDS: IPRATROPIUM BROM 0.5 MG/2.5ML INH SOL NEB SCH ×5 (06:20→23:00)
[2016-12-15] MEDS: MORPHINE SULF INJ 2 MG/ML SYRINGE 1ML IV PRN (06:40)
[2016-12-15] MEDS ORDERED: METOPROLOL TARTRATE 25 MG TAB PO SCH ×3 (10:00→22:00)
[2016-12-15] MEDS ORDERED: NTG 0.1MG/HR TOPICAL PATCH TD SCH (10:00)
[2016-12-15] MEDS ORDERED: METOPROLOL TARTRATE 25 MG TAB PO ONE ×2 (10:15→15:30)
[2016-12-15] MEDS ORDERED: ASPirin 81 mg TAB PO ONE (10:15)
[2016-12-15] MEDS ORDERED: ACETYLCYSTEINE 10 %(100MG/ML) SOL 4ML NEB ONE (10:15)
[2016-12-15] MEDS ORDERED: FERROUS SULFATE 325 MG TAB PO ONE (10:15)
[2016-12-15] MEDS: PANTOPRAZOLE 40 MG/10 ML VIAL IV SCH (10:44)
[2016-12-15] MEDS: CHLORHEXIDINE 0.12% ORAL rinse 473ML MT SCH ×2 (10:44→22:00)
[2016-12-15] MEDS: POTASSIUM CHL 20 Meq TABLET PO SCH ×2 (10:45→22:00)
[2016-12-15] MEDS ORDERED: NITROGLYCERIN 0.4MG/HR TOPICAL PATCH TD ONE (11:00)
[2016-12-15] MEDS: NITROGLYCERIN 0.4MG/HR TOPICAL PATCH TD SCH (11:36)
[2016-12-15] MEDS ORDERED: ALBUMIN 25% 50 ML IV ONE ×2 (13:43→13:45)
[2016-12-15] MEDS ORDERED: ACETYLCYSTEINE 10 %(100MG/ML) SOL 4ML NEB SCH (14:00)
[2016-12-15] MEDS: Boost Glucose Control 8 Ounces PO SCH ×2 (14:20→18:00)
[2016-12-15] MEDS ORDERED: MORPHINE SULF INJ 2 MG/ML SYRINGE 1ML IV PRN ×2 (15:15)
[2016-12-15] MEDS ORDERED: SENNA 8.6 MG TAB PO PRN (15:30)
[2016-12-15] MEDS ORDERED: glipiZIDE 5 MG TAB PO ONE (15:30)
[2016-12-15] MEDS ORDERED: ONDANSETRON HCL 4 MG/2 ML VIAL IV PRN (15:30)
[2016-12-15] MEDS ORDERED: ZOLPIDEM TARTRATE 5 MG TAB PO PRN (15:30)
[2016-12-15] MEDS ORDERED: DOCUSATE SOD 100 MG CAP PO ONE (15:30)
[2016-12-15] MEDS ORDERED: DEXTROSE (50%) 50ML SYRG IV PRN (15:30)
[2016-12-15] MEDS ORDERED: PANTOPRAZOLE 40 MG TAB PO ONE (15:30)
[2016-12-15] MEDS ORDERED: SODIUM CHLORIDE 0.9% 1,000 ML IV SCH (15:45)
[2016-12-15] MEDS ORDERED: FUROSEMIDE 20 MG/2 ML VIAL IV PRN (15:45)
[2016-12-15] MEDS ORDERED: PHENYLEPHRINE IV 250 ML IV ONE (16:24)
[2016-12-15] MEDS ORDERED: NITROGLYCERIN 50MG/250ML 250 ML IV ONE (16:24)
[2016-12-15] MEDS: ACCU-CHEK COMFORT CURVE STRIP VI SCH ×2 (17:34→20:30)
[2016-12-15] MEDS: FERROUS SULFATE 325 MG TAB PO SCH (17:34)
[2016-12-15] MEDS: FUROSEMIDE 20 MG TAB PO SCH (17:34)
[2016-12-15] MEDS ORDERED: INSULIN DRIP 100 UNIT/100ML 100 ML IV SCH (17:42)
[2016-12-15] MEDS: ACETYLCYSTEINE 10 %(100MG/ML) SOL 4ML NEB SCH ×2 (18:00→23:00)
[2016-12-15] MEDS: InsuLIN REG 1unit/0.01ml Soln (100units/ml) SC SCH ×2 (18:00→21:00)
[2016-12-15] MEDS: metFORMIN HYDROCHLORIDE 500 MG TAB PO SCH (18:00)
[2016-12-15] MEDS: PROPRANOLOL HCL 1 MG/ML VIAL IV PRN (18:25)
[2016-12-15] MEDS ORDERED: ACCU-CHEK COMFORT CURVE STRIP VI SCH (19:00)
[2016-12-15 19:02] LABS: Basophils # (auto) 0 uL; Basophils % (auto) 0.3 % (0.0-2.0); Eosinophils # (auto) 0.3 uL; Eosinophils % (auto) 4.3 % (0.0-7.0); Hematocrit 27.1 % (36.0-46.0); Hemoglobin 9.2 g/dL (12.2-16.2); Lymphocytes # (auto) 1.5 uL; Mean Corpuscular Hemoglobin 28.5 pg (28.0-32.0); Mean Corpuscular Hgb Conc. 33.8 g/dL (32.0-36.0); Mean Corpuscular Volume 84.2 fL (80.0-100.0); Mean Platelet Volume 7.8 fL (6.9-10.8); Monocytes # (auto) 0.6 uL; Monocytes % (auto) 7.8 % (0.0-12.0); Neutrophils # (auto) 5.2 uL; Neutrophils % (auto) 67.6 % (37.0-80.0); Nucleated Red Blood Cells % 0.1 %; Platelet Count (auto) 142 10^3/uL (140-450); Red Cell Distribution Width 15.2 % (11.8-14.3); White Blood Cell 7.7 10^3/uL (4.4-10.8)
[2016-12-15] MEDS ORDERED: hydrALAZINE HCL 20 MG/ML VL IV PRN (20:00)
[2016-12-15] MEDS ORDERED: ASPirin-EC 81 mg tab PO ONE (20:00)
[2016-12-15] MEDS: INSULIN DRIP 100 UNIT/100ML 100 ML IV SCH (20:00)
[2016-12-15] MEDS: DOCUSATE SOD 100 MG CAP PO SCH (22:00)
[2016-12-15] MEDS ORDERED: buPROPion HCL 75 MG TAB PO SCH (22:00)
[2016-12-15] MEDS: INSULIN DETEMIR(LEVEMIR) 1unit/0.01ml Soln (100units/ml) SC SCH (22:00)
[2016-12-15] MEDS: ASCORBIC ACID 500 MG TAB PO SCH (22:00)
[2016-12-15] MEDS: ATORVASTATIN 20 MG TAB PO SCH (22:00)
[2016-12-16] VITALS (49 sets, daily range): BP systolic 95–154; BP diastolic 22–84
[2016-12-16] MEDS: AMIODARONE HCL 900 MG in DEXTROSE 500 ML IV SCH (01:00)
[2016-12-16] MEDS ORDERED: KETOROLAC TROMETH 30 MG/ML 1ML VIAL IV ONE (01:45)
[2016-12-16] MEDS: IPRATROPIUM BROM 0.5 MG/2.5ML INH SOL NEB SCH ×6 (02:00→21:52)
[2016-12-16] MEDS: VANCOMYCIN 1GM/250ML D5W 250 ML IV SCH ×2 (02:25→12:20)
[2016-12-16] MEDS: ACCU-CHEK COMFORT CURVE STRIP VI SCH ×6 (03:19→20:00)
[2016-12-16] MEDS: InsuLIN REG 1unit/0.01ml Soln (100units/ml) SC SCH ×6 (03:19→20:00)
[2016-12-16 03:42] LABS: Basophils # (auto) 0 uL; Basophils % (auto) 0.5 % (0.0-2.0); Eosinophils # (auto) 0.3 uL; Eosinophils % (auto) 4.2 % (0.0-7.0); Hematocrit 31.6 % (36.0-46.0); Hemoglobin 10.5 g/dL (12.2-16.2); Lymphocytes # (auto) 1.5 uL; Mean Corpuscular Hemoglobin 28.3 pg (28.0-32.0); Mean Corpuscular Hgb Conc. 33.3 g/dL (32.0-36.0); Mean Platelet Volume 8.1 fL (6.9-10.8); Monocytes # (auto) 0.5 uL; Monocytes % (auto) 6.4 % (0.0-12.0); Neutrophils # (auto) 5.6 uL; Neutrophils % (auto) 69.9 % (37.0-80.0); Nucleated Red Blood Cells % 0.1 %; Platelet Count (auto) 141 10^3/uL (140-450)
[2016-12-16 04:05] LABS: Albumin 3.3 g/dL (3.4-5.0); BUN/Creatinine Ratio 16.4; Calcium 8.5 mg/dL (8.5-10.1); Magnesium 1.5 mg/dL (1.6-2.6); Potassium 3.8 mmol/L (3.5-5.1)
[2016-12-16 04:07] LABS: Total Protein 6.4 g/dL (6.4-8.2)
[2016-12-16] MEDS ORDERED: MAGNESIUM SULFATE 1GM/100ML 200 ML IV ONE (04:40)
[2016-12-16] MEDS ORDERED: POTASSIUM CHL 20MEQ/100ML 100 ML IV ONE (04:45)
[2016-12-16] MEDS ORDERED: CALCIUM GLUC 4.65meq/50ml D5AE 50 ML IV ONE (04:45)
[2016-12-16] MEDS: MAGNESIUM SULFATE 1GM/100ML 100 ML IV SCH ×2 (04:58→05:42)
[2016-12-16] MEDS: FUROSEMIDE 20 MG TAB PO SCH ×2 (06:00→19:25)
[2016-12-16] MEDS: NICARDIPINE 25MG/250ML BAG KIT 250 ML IV SCH ×2 (06:41→08:22)
[2016-12-16] MEDS: PROPRANOLOL HCL 1 MG/ML VIAL IV PRN (08:00)
[2016-12-16] MEDS: FERROUS SULFATE 325 MG TAB PO SCH ×2 (08:17→19:25)
[2016-12-16] MEDS: Boost Glucose Control 8 Ounces PO SCH ×3 (08:17→19:25)
[2016-12-16] MEDS: glipiZIDE 5 MG TAB PO SCH (08:19)
[2016-12-16] MEDS: metFORMIN HYDROCHLORIDE 500 MG TAB PO SCH ×2 (08:20→19:25)
[2016-12-16] MEDS: cefTRIAXone 1GM/50ML D5W 50 ML IV SCH (09:15)
[2016-12-16] MEDS: METOPROLOL TARTRATE 25 MG TAB PO SCH ×2 (09:50→21:17)
[2016-12-16] MEDS: NITROGLYCERIN 0.4MG/HR TOPICAL PATCH TD SCH (09:51)
[2016-12-16] MEDS: PANTOPRAZOLE 40 MG TAB PO SCH (09:51)
[2016-12-16] MEDS: ASCORBIC ACID 500 MG TAB PO SCH ×2 (09:51→21:16)
[2016-12-16] MEDS: ASPirin 81 mg TAB PO SCH (09:52)
[2016-12-16] MEDS: DOCUSATE SOD 100 MG CAP PO SCH ×2 (09:52→21:17)
[2016-12-16] MEDS: ENOXAPARIN SOD 30 MG/0.3 ML SYRINGE SC SCH (09:53)
[2016-12-16] MEDS: ARIPIPRAZOLE 5 MG PO SCH (09:57)
[2016-12-16] MEDS: CHLORHEXIDINE 0.12% ORAL rinse 473ML MT SCH ×2 (09:57→21:18)
[2016-12-16] MEDS: ACETYLCYSTEINE 10 %(100MG/ML) SOL 4ML NEB SCH ×3 (10:10→21:52)
[2016-12-16] MEDS: INSULIN DETEMIR(LEVEMIR) 1unit/0.01ml Soln (100units/ml) SC SCH ×2 (10:12→21:18)
[2016-12-16] MEDS: POTASSIUM CHL 20 Meq TABLET PO SCH ×2 (12:20→22:00)
[2016-12-16] MEDS: SODIUM CHLORIDE 0.9% 1,000 ML IV SCH (12:38)
[2016-12-16] MEDS: ACETAMINOPHEN 325 MG TAB PO PRN ×2 (13:00→20:39)
[2016-12-16] MEDS: POTASSIUM CHL 20MEQ/100ML 100 ML IV PRN ×3 (18:44→23:40)
[2016-12-16] MEDS: ATORVASTATIN 20 MG TAB PO SCH (21:17)
[2016-12-16 22:16] LABS: Magnesium 1.9 mg/dL (1.6-2.6); Potassium 3.9 mmol/L (3.5-5.1)
[2016-12-17] VITALS (37 sets, daily range): BP systolic 96–132; BP diastolic 48–80
[2016-12-17] MEDS: ACCU-CHEK COMFORT CURVE STRIP VI SCH ×5 (00:19→21:08)
[2016-12-17] MEDS: AMIODARONE HCL 900 MG in DEXTROSE 500 ML IV SCH (00:20)
[2016-12-17] MEDS: IPRATROPIUM BROM 0.5 MG/2.5ML INH SOL NEB SCH ×6 (02:11→22:00)
[2016-12-17 03:53] LABS: Basophils # (auto) 0 uL; Basophils % (auto) 0.4 % (0.0-2.0); Eosinophils # (auto) 0.3 uL; Eosinophils % (auto) 5.2 % (0.0-7.0); Hematocrit 31.8 % (36.0-46.0); Hemoglobin 10.8 g/dL (12.2-16.2); Lymphocytes # (auto) 1.7 uL; Lymphocytes % (auto) 25.9 % (10.0-50.0); Mean Corpuscular Hemoglobin 28.8 pg (28.0-32.0); Mean Corpuscular Hgb Conc. 33.9 g/dL (32.0-36.0); Mean Platelet Volume 7.9 fL (6.9-10.8); Monocytes # (auto) 0.6 uL; Monocytes % (auto) 8.4 % (0.0-12.0); Neutrophils % (auto) 60.1 % (37.0-80.0); Nucleated Red Blood Cells % 0.1 %; Platelet Count (auto) 177 10^3/uL (140-450); Red Cell Distribution Width 14.8 % (11.8-14.3); White Blood Cell 6.7 10^3/uL (4.4-10.8)
[2016-12-17] MEDS: InsuLIN REG 1unit/0.01ml Soln (100units/ml) SC SCH ×5 (04:00→21:12)
[2016-12-17 04:10] LABS: BUN/Creatinine Ratio 16.7; Calcium 8.9 mg/dL (8.5-10.1)
[2016-12-17 04:13] LABS: Bilirubin, Total 0.7 mg/dL (0.2-1.0); Total Protein 6.4 g/dL (6.4-8.2)
[2016-12-17] MEDS: POTASSIUM CHL 20MEQ/100ML 100 ML IV PRN ×2 (04:20→06:07)
[2016-12-17] MEDS: FUROSEMIDE 20 MG TAB PO SCH ×2 (06:09→18:40)
[2016-12-17] MEDS: metFORMIN HYDROCHLORIDE 500 MG TAB PO SCH ×2 (06:09→18:40)
[2016-12-17] MEDS: glipiZIDE 5 MG TAB PO SCH (06:09)
[2016-12-17] MEDS: ACETYLCYSTEINE 10 %(100MG/ML) SOL 4ML NEB SCH ×3 (07:55→22:00)
[2016-12-17] MEDS: Boost Glucose Control 8 Ounces PO SCH ×3 (08:00→18:40)
[2016-12-17] MEDS: FERROUS SULFATE 325 MG TAB PO SCH ×2 (08:30→18:40)
[2016-12-17] MEDS: cefTRIAXone 1GM/50ML D5W 50 ML IV SCH (08:51)
[2016-12-17] MEDS: CHLORHEXIDINE 0.12% ORAL rinse 473ML MT SCH ×2 (10:00→21:09)
[2016-12-17] MEDS: ARIPIPRAZOLE 5 MG PO SCH (10:00)
[2016-12-17] MEDS ORDERED: METOPROLOL TARTRATE 25 MG TAB ONE (10:16)
[2016-12-17] MEDS: PANTOPRAZOLE 40 MG TAB PO SCH (10:28)
[2016-12-17] MEDS: ASPirin 81 mg TAB PO SCH (10:29)
[2016-12-17] MEDS: DOCUSATE SOD 100 MG CAP PO SCH ×2 (10:29→21:09)
[2016-12-17] MEDS: POTASSIUM CHL 20 Meq TABLET PO SCH ×2 (10:30→21:08)
[2016-12-17] MEDS: METOPROLOL TARTRATE 50 MG TAB PO SCH ×2 (10:30→21:08)
[2016-12-17] MEDS: ASCORBIC ACID 500 MG TAB PO SCH ×2 (10:30→21:08)
[2016-12-17] MEDS: ENOXAPARIN SOD 30 MG/0.3 ML SYRINGE SC SCH (10:31)
[2016-12-17] MEDS: NITROGLYCERIN 0.4MG/HR TOPICAL PATCH TD SCH (10:31)
[2016-12-17] MEDS: INSULIN DETEMIR(LEVEMIR) 1unit/0.01ml Soln (100units/ml) SC SCH ×2 (11:26→21:12)
[2016-12-17] MEDS ORDERED: DOCU100C8 PO ×3 (12:20→12:22)
[2016-12-17] MEDS ORDERED: TRAM-300 OR ×3 (12:20→12:22)
[2016-12-17] MEDS ORDERED: FUR20T PO ×3 (12:20→12:22)
[2016-12-17] MEDS ORDERED: POTA20TA53 PO ×3 (12:20→12:22)
[2016-12-17] MEDS ORDERED: MET50T PO ×3 (12:20→12:22)
[2016-12-17] MEDS: SODIUM CHLORIDE 0.9% 1,000 ML IV SCH (13:56)
[2016-12-17] MEDS: ATORVASTATIN 20 MG TAB PO SCH (21:08)
[2016-12-18] VITALS (27 sets, daily range): BP systolic 90–133; BP diastolic 32–82
[2016-12-18] MEDS: AMIODARONE HCL 900 MG in DEXTROSE 500 ML IV SCH (01:00)
[2016-12-18] MEDS: IPRATROPIUM BROM 0.5 MG/2.5ML INH SOL NEB SCH ×6 (02:05→22:52)
[2016-12-18 04:11] LABS: Basophils # (auto) 0 uL; Basophils % (auto) 0.5 % (0.0-2.0); Eosinophils # (auto) 0.4 uL; Eosinophils % (auto) 6.1 % (0.0-7.0); Hematocrit 34.4 % (36.0-46.0); Hemoglobin 11.7 g/dL (12.2-16.2); Lymphocytes # (auto) 2.2 uL; Lymphocytes % (auto) 32.2 % (10.0-50.0); Mean Corpuscular Hemoglobin 28.7 pg (28.0-32.0); Mean Corpuscular Hgb Conc. 33.9 g/dL (32.0-36.0); Mean Corpuscular Volume 84.6 fL (80.0-100.0); Mean Platelet Volume 7.5 fL (6.9-10.8); Monocytes # (auto) 0.8 uL; Monocytes % (auto) 11.6 % (0.0-12.0); Neutrophils # (auto) 3.4 uL; Neutrophils % (auto) 49.6 % (37.0-80.0); Platelet Count (auto) 263 10^3/uL (140-450); Red Cell Distribution Width 14.9 % (11.8-14.3); White Blood Cell 6.8 10^3/uL (4.4-10.8)
[2016-12-18 04:29] LABS: Albumin 3.1 g/dL (3.4-5.0); Calcium 9.3 mg/dL (8.5-10.1); Magnesium 1.9 mg/dL (1.6-2.6)
[2016-12-18 04:32] LABS: Bilirubin, Total 0.6 mg/dL (0.2-1.0); Total Protein 6.9 g/dL (6.4-8.2)
[2016-12-18] MEDS: metFORMIN HYDROCHLORIDE 500 MG TAB PO SCH ×2 (06:33→19:02)
[2016-12-18] MEDS: FUROSEMIDE 20 MG TAB PO SCH (06:33)
[2016-12-18] MEDS: ACCU-CHEK COMFORT CURVE STRIP VI SCH ×4 (06:34→22:00)
[2016-12-18] MEDS: InsuLIN REG 1unit/0.01ml Soln (100units/ml) SC SCH ×4 (06:34→22:00)
[2016-12-18] MEDS: glipiZIDE 5 MG TAB PO SCH (06:34)
[2016-12-18] MEDS: ACETYLCYSTEINE 10 %(100MG/ML) SOL 4ML NEB SCH ×3 (06:39→22:52)
[2016-12-18] MEDS: Boost Glucose Control 8 Ounces PO SCH ×3 (08:22→18:00)
[2016-12-18] MEDS: FERROUS SULFATE 325 MG TAB PO SCH ×2 (08:30→19:02)
[2016-12-18] MEDS: ARIPIPRAZOLE 5 MG PO SCH (10:00)
[2016-12-18] MEDS ORDERED: ENOXAPARIN SOD 40 MG/0.4 ML SYRINGE SC ONE (10:23)
[2016-12-18] MEDS: cefTRIAXone 1GM/50ML D5W 50 ML IV SCH (10:30)
[2016-12-18] MEDS: DOCUSATE SOD 100 MG CAP PO SCH ×2 (10:31→22:00)
[2016-12-18] MEDS: ASPirin 81 mg TAB PO SCH (10:31)
[2016-12-18] MEDS: POTASSIUM CHL 20 Meq TABLET PO SCH (10:31)
[2016-12-18] MEDS: PANTOPRAZOLE 40 MG TAB PO SCH (10:31)
[2016-12-18] MEDS: ASCORBIC ACID 500 MG TAB PO SCH ×2 (10:31→22:00)
[2016-12-18] MEDS: NITROGLYCERIN 0.4MG/HR TOPICAL PATCH TD SCH (10:32)
[2016-12-18] MEDS: ENOXAPARIN SOD 30 MG/0.3 ML SYRINGE SC SCH (10:32)
[2016-12-18] MEDS: MAGNESIUM SULFATE 1GM/100ML 100 ML IV SCH ×2 (10:37→11:42)
[2016-12-18] MEDS: METOPROLOL TARTRATE 50 MG TAB PO SCH ×2 (10:37→22:00)
[2016-12-18] MEDS: INSULIN DETEMIR(LEVEMIR) 1unit/0.01ml Soln (100units/ml) SC SCH ×2 (10:38→22:00)
[2016-12-18] MEDS: CHLORHEXIDINE 0.12% ORAL rinse 473ML MT SCH ×2 (11:03→22:00)
[2016-12-18] MEDS: SODIUM CHLORIDE 0.9% 1,000 ML IV SCH (11:30)
[2016-12-18] MEDS ORDERED: POTASSIUM CHL 20 Meq TABLET PO PRN (12:30)
[2016-12-18] MEDS ORDERED: ALBUMIN 25% 50 ML IV ONE (17:15)
[2016-12-18] MEDS: ATORVASTATIN 20 MG TAB PO SCH (22:00)
[2016-12-19] VITALS (28 sets, daily range): BP systolic 98–122; BP diastolic 54–76
[2016-12-19] MEDS: AMIODARONE HCL 900 MG in DEXTROSE 500 ML IV SCH (01:00)
[2016-12-19] MEDS: IPRATROPIUM BROM 0.5 MG/2.5ML INH SOL NEB SCH ×6 (02:30→22:44)
[2016-12-19 04:41] LABS: Basophils # (auto) 0 uL; Basophils % (auto) 0.5 % (0.0-2.0); Eosinophils # (auto) 0.5 uL; Eosinophils % (auto) 5.9 % (0.0-7.0); Hematocrit 36.7 % (36.0-46.0); Hemoglobin 12.1 g/dL (12.2-16.2); Lymphocytes # (auto) 3.1 uL; Lymphocytes % (auto) 35.5 % (10.0-50.0); Mean Corpuscular Hemoglobin 28.4 pg (28.0-32.0); Mean Corpuscular Hgb Conc. 33.1 g/dL (32.0-36.0); Mean Corpuscular Volume 85.8 fL (80.0-100.0); Mean Platelet Volume 7.7 fL (6.9-10.8); Monocytes # (auto) 1.1 uL; Monocytes % (auto) 12.2 % (0.0-12.0); Neutrophils % (auto) 45.9 % (37.0-80.0); Nucleated Red Blood Cells % 0.1 %; Platelet Count (auto) 269 10^3/uL (140-450); Red Cell Distribution Width 14.7 % (11.8-14.3); White Blood Cell 8.7 10^3/uL (4.4-10.8)
[2016-12-19 04:55] LABS: INR 0.96 (0.9-1.15); Prothrombin Time 10.5 sec (9.37-12.3)
[2016-12-19 05:02] LABS: Albumin 3.2 g/dL (3.4-5.0); Calcium 9.9 mg/dL (8.5-10.1); Magnesium 2.3 mg/dL (1.6-2.6); Potassium 4.1 mmol/L (3.5-5.1)
[2016-12-19 05:04] LABS: BUN/Creatinine Ratio 22.2
[2016-12-19 05:07] LABS: Bilirubin, Total 0.4 mg/dL (0.2-1.0)
[2016-12-19] MEDS: InsuLIN REG 1unit/0.01ml Soln (100units/ml) SC SCH ×4 (06:26→21:54)
[2016-12-19] MEDS: ACCU-CHEK COMFORT CURVE STRIP VI SCH ×4 (06:26→21:54)
[2016-12-19] MEDS: ACETYLCYSTEINE 10 %(100MG/ML) SOL 4ML NEB SCH ×3 (07:35→22:44)
[2016-12-19] MEDS: Boost Glucose Control 8 Ounces PO SCH ×3 (08:00→18:00)
[2016-12-19] MEDS: glipiZIDE 5 MG TAB PO SCH (08:00)
[2016-12-19] MEDS: metFORMIN HYDROCHLORIDE 500 MG TAB PO SCH ×2 (08:00→17:35)
[2016-12-19] MEDS: FERROUS SULFATE 325 MG TAB PO SCH ×2 (09:01→17:34)
[2016-12-19] MEDS: cefTRIAXone 1GM/50ML D5W 50 ML IV SCH (09:01)
[2016-12-19] MEDS: ARIPIPRAZOLE 5 MG PO SCH (10:00)
[2016-12-19] MEDS: CHLORHEXIDINE 0.12% ORAL rinse 473ML MT SCH ×2 (10:00→21:54)
[2016-12-19] MEDS: POTASSIUM CHL 20 Meq TABLET PO SCH (10:50)
[2016-12-19] MEDS: DOCUSATE SOD 100 MG CAP PO SCH ×2 (10:51→21:53)
[2016-12-19] MEDS: FUROSEMIDE 40 MG TAB PO SCH (10:51)
[2016-12-19] MEDS: PANTOPRAZOLE 40 MG TAB PO SCH (10:52)
[2016-12-19] MEDS: ENOXAPARIN SOD 30 MG/0.3 ML SYRINGE SC SCH (10:52)
[2016-12-19] MEDS: METOPROLOL TARTRATE 50 MG TAB PO SCH ×2 (10:52→21:54)
[2016-12-19] MEDS: ASCORBIC ACID 500 MG TAB PO SCH ×2 (10:53→21:53)
[2016-12-19] MEDS: ASPirin 81 mg TAB PO SCH (10:53)
[2016-12-19] MEDS: NITROGLYCERIN 0.4MG/HR TOPICAL PATCH TD SCH (10:54)
[2016-12-19] MEDS: INSULIN DETEMIR(LEVEMIR) 1unit/0.01ml Soln (100units/ml) SC SCH ×2 (11:00→21:54)
[2016-12-19] MEDS: SODIUM CHLORIDE 0.9% 1,000 ML IV SCH (12:33)
[2016-12-19] MEDS: PROPRANOLOL HCL 1 MG/ML VIAL IV PRN (20:35)
[2016-12-19] MEDS: ATORVASTATIN 20 MG TAB PO SCH (21:54)
[2016-12-20] VITALS (13 sets, daily range): BP systolic 101–138; BP diastolic 57–81
[2016-12-20] MEDS: AMIODARONE HCL 900 MG in DEXTROSE 500 ML IV SCH (01:00)
[2016-12-20] MEDS: IPRATROPIUM BROM 0.5 MG/2.5ML INH SOL NEB SCH ×4 (02:46→14:09)
[2016-12-20 03:41] LABS: Basophils # (auto) 0 uL; Basophils % (auto) 0.4 % (0.0-2.0); Eosinophils # (auto) 0.5 uL; Eosinophils % (auto) 4.8 % (0.0-7.0); Hematocrit 37.2 % (36.0-46.0); Hemoglobin 12.4 g/dL (12.2-16.2); Lymphocytes # (auto) 3.6 uL; Lymphocytes % (auto) 35.1 % (10.0-50.0); Mean Corpuscular Hemoglobin 28.3 pg (28.0-32.0); Mean Corpuscular Hgb Conc. 33.3 g/dL (32.0-36.0); Mean Corpuscular Volume 84.7 fL (80.0-100.0); Mean Platelet Volume 7.5 fL (6.9-10.8); Monocytes # (auto) 0.9 uL; Monocytes % (auto) 8.5 % (0.0-12.0); Neutrophils # (auto) 5.3 uL; Neutrophils % (auto) 51.2 % (37.0-80.0); Platelet Count (auto) 351 10^3/uL (140-450); Red Cell Distribution Width 14.8 % (11.8-14.3); White Blood Cell 10.4 10^3/uL (4.4-10.8)
[2016-12-20 03:58] LABS: INR 0.98 (0.9-1.15); Prothrombin Time 10.7 sec (9.37-12.3)
[2016-12-20 03:59] LABS: Albumin 3.3 g/dL (3.4-5.0); Calcium 9.8 mg/dL (8.5-10.1); Magnesium 2.1 mg/dL (1.6-2.6); Potassium 4.2 mmol/L (3.5-5.1)
[2016-12-20 04:01] LABS: BUN/Creatinine Ratio 24.6
[2016-12-20 04:04] LABS: Bilirubin, Total 0.4 mg/dL (0.2-1.0); Total Protein 7.4 g/dL (6.4-8.2)
[2016-12-20] MEDS: ACETYLCYSTEINE 10 %(100MG/ML) SOL 4ML NEB SCH ×2 (06:02→14:09)
[2016-12-20] MEDS: InsuLIN REG 1unit/0.01ml Soln (100units/ml) SC SCH ×2 (06:58→12:00)
[2016-12-20] MEDS: ACCU-CHEK COMFORT CURVE STRIP VI SCH ×2 (06:59→11:45)
[2016-12-20] MEDS: Boost Glucose Control 8 Ounces PO SCH ×2 (08:00→12:00)
[2016-12-20] MEDS: metFORMIN HYDROCHLORIDE 500 MG TAB PO SCH (09:48)
[2016-12-20] MEDS: glipiZIDE 5 MG TAB PO SCH (09:48)
[2016-12-20] MEDS: FERROUS SULFATE 325 MG TAB PO SCH (09:48)
[2016-12-20] MEDS: PANTOPRAZOLE 40 MG TAB PO SCH (09:49)
[2016-12-20] MEDS: ASCORBIC ACID 500 MG TAB PO SCH (09:49)
[2016-12-20] MEDS: METOPROLOL TARTRATE 50 MG TAB PO SCH (09:50)
[2016-12-20] MEDS: DOCUSATE SOD 100 MG CAP PO SCH (09:50)
[2016-12-20] MEDS: FUROSEMIDE 40 MG TAB PO SCH (09:50)
[2016-12-20] MEDS: POTASSIUM CHL 20 Meq TABLET PO SCH (09:51)
[2016-12-20] MEDS: ASPirin 81 mg TAB PO SCH (09:51)
[2016-12-20] MEDS: ARIPIPRAZOLE 5 MG PO SCH (09:52)
[2016-12-20] MEDS: NITROGLYCERIN 0.4MG/HR TOPICAL PATCH TD SCH (09:52)
[2016-12-20] MEDS: cefTRIAXone 1GM/50ML D5W 50 ML IV SCH (09:53)
[2016-12-20] MEDS: CHLORHEXIDINE 0.12% ORAL rinse 473ML MT SCH (09:54)
[2016-12-20] MEDS: ENOXAPARIN SOD 30 MG/0.3 ML SYRINGE SC SCH (10:00)
[2016-12-20] MEDS ORDERED: ATOR20TA50 PO (10:28)
[2016-12-20] MEDS ORDERED: LEVO750T2 PO (10:28)
[2016-12-20] MEDS: INSULIN DETEMIR(LEVEMIR) 1unit/0.01ml Soln (100units/ml) SC SCH (10:30)
[2016-12-20] MEDS: SODIUM CHLORIDE 0.9% 1,000 ML IV SCH (12:33)
[2016-12-20] MEDS ORDERED: NICARDIPINE 25MG/250ML BAG KIT 250 ML IV ONE (16:24)
== END 2016-12-20 16:25 | disposition home health service (06) | DRG 165 ==
LOC: ER 21:48 → TELE 21:49 → DOU IN ICU 12-11 03:44 → ICU WEST 12-11 18:30
PROVIDERS: ADMIT Nurse Practitioner; ATTEND Internal Medicine
PROC: 4A023N7 Measurement of Cardiac Sampling and Pressure, Left Heart, Percutaneous Approach (ICD-10-PCS; 2016-12-11)
PROC: B2111ZZ Fluoroscopy of Multiple Coronary Arteries using Low Osmolar Contrast (ICD-10-PCS; 2016-12-11)
PROC: B2151ZZ Fluoroscopy of Left Heart using Low Osmolar Contrast (ICD-10-PCS; 2016-12-11)
PROC: 30233N1 Transfusion of Nonautologous Red Blood Cells into Peripheral Vein, Percutaneous Approach (ICD-10-PCS; 2016-12-13)
PROC: 5A02110 Assistance with Cardiac Output using Balloon Pump, Intermittent (ICD-10-PCS; principal; 2016-12-13 13:09)
PROC: 021009W Bypass Coronary Artery, One Artery from Aorta with Autologous Venous Tissue, Open Approach (ICD-10-PCS; 2016-12-15)
PROC: 02100Z9 Bypass Coronary Artery, One Artery from Left Internal Mammary, Open Approach (ICD-10-PCS; 2016-12-15)
PROC: 5A1221Z Performance of Cardiac Output, Continuous (ICD-10-PCS; 2016-12-15)
PROC: 06BP0ZZ Excision of Right Saphenous Vein, Open Approach (ICD-10-PCS; 2016-12-15)
DX: I21.4 Non-ST elevation (NSTEMI) myocardial infarction (principal); J96.00 Acute respiratory failure, unspecified whether with hypoxia or hypercapnia; I13.0 Hypertensive heart and chronic kidney disease with heart failure and stage 1 through stage 4 chronic kidney disease, or unspecified chronic kidney disease; A41.9 Sepsis, unspecified organism; J18.9 Pneumonia, unspecified organism; I50.9 Heart failure, unspecified; D68.9 Coagulation defect, unspecified; E11.21 Type 2 diabetes mellitus with diabetic nephropathy; E11.22 Type 2 diabetes mellitus with diabetic chronic kidney disease; I25.118 Atherosclerotic heart disease of native coronary artery with other forms of angina pectoris; Z87.442 Personal history of urinary calculi; J95.89 Other postprocedural complications and disorders of respiratory system, not elsewhere classified; N18.9 Chronic kidney disease, unspecified; I25.2 Old myocardial infarction; N39.0 Urinary tract infection, site not specified; J98.11 Atelectasis; E88.09 Other disorders of plasma-protein metabolism, not elsewhere classified; Z82.49 Family history of ischemic heart disease and other diseases of the circulatory system; D64.9 Anemia, unspecified; E66.01 Morbid (severe) obesity due to excess calories; E66.9 Obesity, unspecified; E78.5 Hyperlipidemia, unspecified
CPT/HCPCS: 36415; 36600; 71010; 71275; 80048; 80053; 80061; 81001; 81025; 82805; 82962; 83036; 83735; 83880; 84100; 84132; 84443; 84484; 85025; 85379; 85576; 85610; 85730; 86850; 86900; 86901; 86920; 87040; 87070; 87081; 87205; 93005; 93306; 93458; 93886; 93970; 94002; 94003; 94640; 94660; 94667; 94668; 96361; 96372; 96374; 96375; 97163; 99152; 99153; A4565; C1751; C1768; C9113; J0153; J0610; J0690; J0696; J1642; J1644; J1815; J1885; J2250; J2405; J2440; J2704; J3010; J3480; J7060; Q9967